=== PATIENT | male | born 1990 | race Caucasian/White ===

== ENCOUNTER 2018-08-23 03:54 | Emergency (ER) | payer SELFPAY ==
[2018-08-23] MEDS ORDERED: Diphtheria,Pertussis(Acell),Tetanus Vaccine 0.5 ML Syringe IM ONE (04:21)
[2018-08-23] MEDS ORDERED: Cephalexin 500 MG Cap PO ONE (04:21)
--- NOTE | 2018-08-23 04:27 | EDM.PDOC ---
ED HPI GENERAL MEDICAL PROBLEM - General Chief Complaint: Laceration Stated Complaint: AMB Time Seen by Provider: 08/23/18 04:17 - History of Present Illness INITIAL COMMENTS - FREE TEXT/NARRATIVE: HISTORY AND PHYSICAL: History of present illness: The patient is a 27-year-old male who presents via EMS after he punched a wall sustaining a laceration to his right index finger extending into his hand. The patient spoke to triage when he came in and said that everything else was okay except for his hand and finger and he did admit to drinking alcohol tonight. He denied any other systemic complaints. On my evaluation the patient has fallen asleep and is snoring soundly in the room and does not offer much history. 4 of his last tetanus shot. Review of systems: As per history of present illness and below otherwise all systems reviewed and negative. Past medical history: As per history of present illness and as reviewed below otherwise noncontributory. Surgical history: As per history of present illness and as reviewed below otherwise noncontributory. Social history: No reported history of drug or alcohol abuse. Family history: As per history of present illness and as reviewed below otherwise noncontributory. Physical exam: General: Well-developed well-nourished man who is nontoxic and vital signs are noted by me. HEENT: Atraumatic, normocephalic, pupils reactive to only 2 mm bilaterally and sclera are injected, negative for conjunctival pallor or scleral icterus, mucous membranes moist, throat clear, neck supple, nontender, trachea midline. There is no visible evidence or palpable evidence of any scalp or facial trauma Lungs: Clear to auscultation with some coarse breath sounds and rhonchi bilaterally but no work of breathing wheezing or stridor, breath sounds equal bilaterally, chest nontender. Heart: S1S2, regular rhythm and sensory tachycardic rate on my evaluation but no overt murmurs Abdomen: Soft, nondistended, nontender. Negative for masses or hepatosplenomegaly. NABS Pelvis: Stable nontender. Genitourinary: Deferred. Rectal: Deferred. Extremities: Atraumatic full range of motion of all extremities with the exception of the right hand and right index finger on the dorsal aspect. There is a vertical laceration seen at the proximal phalanx soft tissue extending to the first MCP which measures 4 cm in length. There is no active bleeding appreciated or gross soft tissue swelling in the surround the extensor tendon is visualized and also looks like it has scattered areas of vertical laceration running the length of the tendon in more than one area in a shred like look. I can passively extend the finger but will need to further reevaluate this when the patient is more awake. There are no other injuries seen on the right hand and no soft tissue swelling of the hand fingers and proximal wrist and forearm. Neurovascular unremarkable. Please see below for more Neuro: Per triage patient was Awake, alert, oriented with no focal deficits on their evaluation. On my evaluation the patient is sleeping and does move all extremities spontaneously without any focal deficits. Diagnostics: Right hand x-ray Therapeutics: Tdap, Keflex by mouth, wound care bacitracin Procedure note: After the wound was irrigated by nursing and x-ray results were obtained 1% lidocaine with epinephrine was infused in the area and the wound was prepped and draped in sterile fashion. The wound was further explored to further assess the tendon. The patient was more awake with the wound evaluation and was able to extend his index finger against resistance with good strength. On further visual inspection extensor tendon in this region looks somewhat shredded in more than one location and the laceration has some depth into this deep tissues and to potentially the MCP joint space. It was cleaned out again. The patient will be placed on antibiotics The skin edges were reapproximated using simple interrupted sutures for a total number of # 8 of 4-0 nylon. The patient tolerated the procedure well and there were no complications. Bacitracin and dressing were applied by nursing [id number]: Case was discussed with the hand surgeon on-call at [facility], Dr. James, and he agrees with my care plan of closing the wound and placing him on antibiotics and he would like the patient to call Friday morning for a follow -up appointment. Impression: Right hand injury/right index finger and hand laceration with extensor tendon involvement Definitive disposition and diagnosis as appropriate pending reevaluation and review of above. Treatments [employer]: Reports: Dressing(s) - Related Data Allergies Allergy/AdvReac Type Severity Reaction Status Date / Time No Known Allergies Allergy Verified 08/23/18 04:11 Home Meds: Home Meds . [No Known Home Meds] 08/23/18 [History] Past Medical History - Past Health History Medical/Surgical History: Denies Medical/Surgical History Social & Family History - Family History Family Medical History: Noncontributory - Tobacco Use Smoking Status *Q: Current Every Day Smoker Years of Tobacco use: 5 Packs/Tins Daily: 1 - Recreational Drug Use Recreational Drug Use: No ED ROS GENERAL - Review of Systems Review Of Systems: ROS reveals no pertinent complaints other than HPI. ED EXAM, SKIN/RASH Exam: See Below (See dictation) Course - Vital Signs Last Recorded V/S: Last Vital Signs Temp 36.4 C 08/23/18 03:54 Pulse 86 08/23/18 03:54 Resp 18 08/23/18 03:54 BP 109/57 L 08/23/18 03:54 Pulse Ox 94 L 08/23/18 03:54 - Orders/Labs/Meds Orders: Active Orders 24 hr Category Date Time Status Vaccines to be Administered [RC] PER UNIT ROUTINE Care 08/23/18 04:21 Active Meds: Medications Discontinued Medications Generic Name Dose Route Start Last Admin Trade Name Freq PRN Reason Stop Dose Admin Bacitracin 1 dose 08/23/18 04:46 Bacitracin Oint 1 Gm TOP 08/23/18 04:47 ONETIME ONE Cephalexin 500 mg 08/23/18 04:21 Keflex PO 08/23/18 04:22 ONETIME ONE Diphtheria/Tetanus/Acell Pertussis 0.5 ml 08/23/18 04:21 Adacel IM 08/23/18 04:22 .ONCE ONE Lidocaine/Epinephrine 20 ml 08/23/18 04:39 Xylocaine 1% With Epinephrine 1:100,000 INJECT 08/23/18 04:40 ONETIME ONE Departure - Departure Time of Disposition: 05:37 Disposition: Home, Self-Care 01 Condition: Good Clinical Impression: Laceration of finger, right, complicated Qualifiers: Encounter type: initial encounter Qualified Code(s): S61.219A - Laceration without foreign body of unspecified finger without damage to nail, initial encounter Injury of extensor tendon of right hand Qualifiers: Encounter type: initial encounter Qualified Code(s): S66.901A - Unspecified injury of unspecified muscle, fascia and tendon at wrist and hand level, right hand, initial encounter - Discharge Information Forms: ED Department Discharge Additional Instructions: The following information is given to patients seen in the emergency department who are being discharged to home. This information is to outline your options for follow-up care. We provide all patients seen in our emergency department with a follow-up referral. The need for follow-up, as well as the timing and circumstances, are variable depending upon the specifics of your emergency department visit. If you don't have a primary care physician on staff, we will provide you with a referral. We always advise you to contact your personal physician following an emergency department visit to inform them of the circumstance of the visit and for follow-up with them and/or the need for any referrals to a consulting specialist. The emergency department will also refer you to a specialist when appropriate. This referral assures that you have the opportunity for followup care with a specialist. All of these measure are taken in an effort to provide you with optimal care, which includes your followup. Under all circumstances we always encourage you to contact your private physician who remains a resource for coordinating your care. When calling for followup care, please make the office aware that this follow-up is from your recent emergency room visit. If for any reason you are refused follow-up, please contact the [facility] emergency department at and ask to speak to the emergency department charge nurse. Dr Smith & Dr James [facility] [address] [place] [address] Keep the dressing that was placed on in the ED until Friday and then you may remove cleanse with mild soap and water and pat dry but please replace a dressing and splint that was given to you to protect the tendon. Please call and follow-up with Dr. James using the resources you have been given for follow-up care as he has the hand specialist at [facility] and our close his hand specialist. He was called specifically about your case and you need to have him reevaluate your finger for the tendon strength. Take Keflex as prescribed for antibiotics and use [id number] medications such as Tylenol or ibuprofen for pain management. Return to ER as needed and as discussed - My Orders Last 24 Hours: My Active Orders 08/23/18 04:21 Vaccines to be Administered [RC] PER UNIT ROUTINE - Assessment/Plan Last 24 Hours: My Active Orders 08/23/18 04:21 Vaccines to be Administered [RC] PER UNIT ROUTINE
[2018-08-23] MEDS ORDERED: Lidocaine 1% with EPINEPHrine 1:100,000 20 ML MDV INJECT ONE (04:39)
[2018-08-23] MEDS ORDERED: Bacitracin Oint 1 GM U/D Packet TOP ONE (04:46)
--- NOTE | 2018-08-23 05:21 | CR ---
Indication: Laceration to index finger Technique: Three views right hand Comparison: None Findings: Bones: Alignment is normal. No fractures or bone lesions. Joint spaces: Unremarkable. Soft tissues: Unremarkable. Impression: Negative. Dictated by Quyen Squires MD @ Aug 23 2018 5:20AM Signed by Dr. Quyen Squires @ Aug 23 2018 5:21AM
== END 2018-08-23 06:15 | disposition home or self-care (01) ==
LOC: MW.ED 03:54
DX: S66.320A Laceration of extensor muscle, fascia and tendon of right index finger at wrist and hand level, initial encounter (principal); F17.210 Nicotine dependence, cigarettes, uncomplicated; Z23 Encounter for immunization; W22.01XA Walked into wall, initial encounter
CPT/HCPCS: 12002; 73130; 90471; 90715; 99283; A9270